=== PATIENT | female | born 1940 | race Caucasian/White ===

== ENCOUNTER 2016-11-13 13:08 | Outpatient (CLI) | payer MEDICARE, BC ==
--- NOTE | 2016-11-14 13:15 | Mammography Report ---
DIGITAL SCREENING MAMMOGRAM: 11/13/2016 CLINICAL INDICATION: A 76-year-old nulliparous patient with family history of breast cancer for scre ening. COMPARISON: 11/2015, 09/2014, 09/2013, 07/2012, 05/2011, 05/2010, 05/2009. TECHNIQUE: Routine CC and MLO projections were obtained of the breasts. FINDINGS: The breasts again demonstrate scattered fibroglandular densities bilaterally. Coarse, typ ically benign calcifications are present. No suspicious masses, clustered microcalcifications, or re gions of architectural distortion are identified. IMPRESSION: BENIGN FINDINGS. RECOMMENDATION: Routine annual screening unless otherwise clinically indicated. BI-RADS category 2, benign findings. STANDARD QUALIFYING STATEMENTS 1. This examination was reviewed with the aid of Computer-Aided Detection (CAD). 2. A negative or benign imaging report should not delay biopsy if clinically suspicious findings are present. Consider surgical consultation if warranted. More than 5% of cancers are not identified by i maging. 3. Dense breasts may obscure an underlying neoplasm. JOB #: [id number] EXT JOB #:[id number]
== END 2016-11-13 13:09 | disposition home or self-care (01) ==
LOC: DI 13:08
PROVIDERS: ATTEND Internal Medicine
DX: Z12.31 Encounter for screening mammogram for malignant neoplasm of breast (principal)
CPT/HCPCS: 77067

== ENCOUNTER 2017-11-11 08:00 | Outpatient (CLI) | payer MEDICARE, BC | END 2017-11-11 08:01 | disposition home or self-care (01) | LOC: LAB.R 08:00 | PROVIDERS: ATTEND Internal Medicine | DX: J02.9 Acute pharyngitis, unspecified (principal) | CPT/HCPCS: 87070; 87430 ==

== ENCOUNTER 2017-11-25 11:21 | Outpatient (CLI) | payer MEDICARE, BC | END 2017-11-25 11:22 | disposition home or self-care (01) | LOC: DI 11:21 | PROVIDERS: ATTEND Internal Medicine | DX: Z12.31 Encounter for screening mammogram for malignant neoplasm of breast (principal) | CPT/HCPCS: 77063; 77067 ==

== ENCOUNTER 2018-06-06 12:09 | Emergency (ER) | payer MEDICARE, BC ==
[2018-06-06] MEDS ORDERED: SODIUM CHLORIDE 0.9% 1,000 ML IV ONE (12:32)
--- NOTE | 2018-06-06 12:33 | ED Physician Documentation ---
PD HPI FEMALE - Stated complaint Stated Complaint: FEMALE - Chief complaint Chief Complaint: General - History obtained from History obtained from: Patient PD PAST MEDICAL HISTORY - Allergies Allergies/Adverse Reactions: Allergies Allergy/AdvReac Type Severity Reaction Status Date / Time acetaminophen [From Vicodin] Allergy Unknown Verified 06/06/18 12:18 digoxin Allergy Unknown Verified 06/06/18 12:22 hydrocodone [From Vicodin] Allergy Unknown Verified 06/06/18 12:18 omeprazole Allergy Unknown Verified 06/06/18 12:22 Penicillins Allergy Unknown Verified 06/06/18 12:18 Sulfa (Sulfonamide Allergy Unknown Verified 06/06/18 12:18 Antibiotics) sulfamethoxazole Allergy Unknown Verified 06/06/18 12:23 [From Septra] trimethoprim [From Septra] Allergy Unknown Verified 06/06/18 12:23 Results - Vitals Vitals: Vital Signs - 24 hr 06/06/18 12:18 Temperature 36.3 C L Heart Rate 67 Respiratory 16 Rate Blood Pressure 178/75 H O2 Saturation 97 Oxygen O2 Source Room air
--- NOTE | 2018-06-06 12:47 | ED Physician Documentation ---
History of Present Illness - Stated complaint Stated Complaint: FEMALE - Chief complaint Chief Complaint: General - History obtained from History obtained from: Patient, Family - Additonal information Additional information: Patient is a 78-year-old female with history of atrial fibrillation with anticoagulation of Coumadin presenting with hematuria associated with right flank pain and right-sided abdominal pain, although no suprapubic pain, nausea, vomiting, dysuria, stool changes, or fever. Patient is traveling home from [place] where she was hospitalized for some time due to pneumonia, CHF, and atrial fibrillation. Patient is scheduled for follow-up with cardiology later this week to discuss ablation. Patient's last INR several days ago was over 6 and she has held her Coumadin for the past 2 days. Patient denies any particular improving or worsening factors. Review of Systems Constitutional: denies: Fever GI: reports: Abdominal Pain. denies: Vomiting : reports: Hematuria. denies: Dysuria Musculoskeletal: reports: Back pain PD PAST MEDICAL HISTORY - Past Medical History Past Medical History: Yes Cardiovascular: Congestive heart failure, Atrial fibrillation - Present Medications Home Medications: Ambulatory Orders Medication Instructions Recorded Confirmed Amiodarone [Pacerone] 200 mg PO DAILY 06/06/18 06/06/18 Cephalexin [Keflex] 500 mg PO TID 10 Days #30 capsule 06/06/18 Estradiol 0.025 mg PO DAILY 06/06/18 06/06/18 Furosemide [Lasix] 20 mg PO DAILY 06/06/18 06/06/18 Lovastatin 20 mg PO DAILY 06/06/18 06/06/18 Metoprolol Succinate 12.5 mg PO BID 06/06/18 06/06/18 Rabeprazole Sodium [Aciphex] 20 mg PO DAILY 06/06/18 06/06/18 Thyroid [[place] Thyroid] 60 mg PO DAILY 06/06/18 06/06/18 Warfarin [Coumadin] 5 mg PO 1400 06/06/18 06/06/18 - Allergies Allergies/Adverse Reactions: Allergies Allergy/AdvReac Type Severity Reaction Status Date / Time acetaminophen [From Vicodin] Allergy Unknown Verified 06/06/18 12:18 digoxin Allergy Unknown Verified 06/06/18 12:22 hydrocodone [From Vicodin] Allergy Unknown Verified 06/06/18 12:18 omeprazole Allergy Unknown Verified 06/06/18 12:22 Penicillins Allergy Unknown Verified 06/06/18 12:18 Sulfa (Sulfonamide Allergy Unknown Verified 06/06/18 12:18 Antibiotics) sulfamethoxazole Allergy Unknown Verified 06/06/18 12:23 [From ] trimethoprim [From ] Allergy Unknown Verified 06/06/18 12:23 PD ED PE NORMAL - General General: Alert and oriented X 3, No acute distress, Well developed/nourished - HEENT HEENT: Atraumatic - Cardiac Cardiac: RRR. No: No murmur (Soft, holosystolic over tricuspid) - Respiratory Respiratory: No respiratory distress, Clear bilaterally - Abdomen Abdomen: Normal bowel sounds, Soft, Non tender, Non distended - Back Back: No: No CVA TTP (Right CVA tenderness) - Derm Derm: Normal color, Warm and dry, No rash - Extremities Extremities: No deformity, No tenderness to palpate - Neuro Neuro: Alert and oriented X 3, No motor deficit, No sensory deficit - Psych Psych: Normal mood, Normal affect Results - Vitals Vitals: Vital Signs - 24 hr 06/06/18 12:18 Temperature 36.3 C L Heart Rate 67 Respiratory 16 Rate Blood Pressure 178/75 H O2 Saturation 97 Oxygen O2 Source Room air - Labs Labs: Laboratory Tests 06/06/18 06/06/18 06/06/18 12:33 12:50 12:50 WBC 6.5 RBC 5.77 H Hgb 16.8 H Hct 49.1 H MCV 85.2 MCH 29.2 MCHC 34.2 RDW 13.7 Plt Count 423 MPV 7.3 L Neut # (Auto) 3.9 Lymph # (Auto) 1.5 Pine # (Auto) 0.9 Eos # (Auto) 0.1 Baso # (Auto) 0.1 Absolute Nucleated RBC 0.00 Nucleated RBC % 0.0 PT 63.8 H INR 5.8 H* APTT 59.5 H Sodium Potassium Chloride Carbon Dioxide Anion Gap BUN Creatinine Estimated GFR (MDRD) Glucose Calcium Total Bilirubin AST ALT Alkaline Phosphatase Total Protein Albumin Globulin Albumin/Globulin Ratio Lipase Urine Color RED/BLOODY Urine Clarity BLOODY Urine pH 7.5 Ur Specific Rudolph <=1.005 Urine Protein Urine Glucose (UA) NEGATIVE Urine Ketones Urine Occult Blood Urine Nitrite Urine Bilirubin NEGATIVE Urine Urobilinogen Ur Leukocyte Esterase Urine RBC TNTC H Urine WBC 0-3 Ur Squamous Epith Cells RARE Squamous Urine Bacteria None Seen Ur Microscopic Review INDICATED Urine Culture Comments NOT INDICATED 06/06/18 12:50 WBC RBC Hgb Hct MCV MCH MCHC RDW Plt Count MPV Neut # (Auto) Lymph # (Auto) Pine # (Auto) Eos # (Auto) Baso # (Auto) Absolute Nucleated RBC Nucleated RBC % PT INR APTT Sodium 134 L Potassium 3.6 Chloride 100 L Carbon Dioxide 26 Anion Gap 8.0 BUN 8 Creatinine 0.7 Estimated GFR (MDRD) 81 L Glucose 109 H Calcium 9.4 Total Bilirubin 1.1 H AST 27 ALT 21 Alkaline Phosphatase 63 Total Protein 7.5 Albumin 4.1 Globulin 3.4 Albumin/Globulin Ratio 1.2 Lipase 26 Urine Color Urine Clarity Urine pH Ur Specific Rudolph Urine Protein Urine Glucose (UA) Urine Ketones Urine Occult Blood Urine Nitrite Urine Bilirubin Urine Urobilinogen Ur Leukocyte Esterase Urine RBC Urine WBC Ur Squamous Epith Cells Urine Bacteria Ur Microscopic Review Urine Culture Comments PD MEDICAL DECISION MAKING - ED course Complexity details: reviewed results, re-evaluated patient, considered differential, d/w patient, d/w family ED course: Most concerning for pyelonephritis and UTI given the patient's complaints and physical exam. Patient unfortunately has had a complicated past several weeks/months with episodes of pneumonia, CHF, and atrial fibrillation. Do not feel that these factors are contributing to her issues today. Do not have high suspicion for new or worsening arrhythmia, IL, unstable angina, CHF exacerbation, pneumonia, or other systemic illness except for renal disease at this time. Patient's hematuria may be related to hemorrhagic cystitis or her anticoagulation and therefore, INR will be obtained in addition to other lab work. Urinalysis also ordered. Patient started on IV fluids, but does not require further medications at this time. Patient is set up for cardiac follow- up later this week. Patient was unsure if she has had a murmur diagnosed in the past. Do not think this is related to today's issues and can be followed appropriately in the next several days by cardiology.Patient's lab work returned relatively unremarkable with no significant evidence of leukocytosis, anemia, acute kidney injury. However, patient's INR was extremely supratherapeutic at 5.8, which is likely contributing to patient's hematuria. Unfortunately, patient's urinalysis was difficult to interpret as many values were not able to be obtained due to the heavy presence of blood. However, at this time, feel that based on clinical exam patient could be experiencing pyelonephritis and UTI and felt most appropriate to treat with antibiotic. Patient did request IV dose of antibiotic prior to discharge and Rocephin was given. Patient does note allergies to sulfa and penicillins. Feel that cross-reactivity with cephalosporins will be minimal and felt comfortable administering this medication here and at home. Also advised to continue to hold Coumadin until further INR check and have close follow-up with both primary care physician and cardiology this week. Also discussed strict return precautions. Patient voiced understanding and are comfortable with discharge plan. Departure - Departure Disposition: , Self Care Clinical Impression: Pyelonephritis Urinary tract infection Qualifiers: Urinary tract infection type: site unspecified Hematuria presence: with hematuria Qualified Code(s): N39.0 - Urinary tract infection, site not specified; R31.9 - Hematuria, unspecified Condition: Good Instructions: ED Kidney Infec Female, ED UTI Cystitis Female Follow-Up: Matilde Wolf MD [Primary Care Provider] - Tomorrow Prescriptions: Cephalexin [Keflex] 500 mg PO TID 10 Days #30 capsule Comments: Please continue all home medication as previously instructed except for Coumadin. 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 Please contact your primary care physician tomorrow for close follow-up, as well as attend follow-up as scheduled with Cristal Yao later this week. Return to ED immediately if experience worsening bleeding, worsening pain, fever, vomiting, or other concerns.
[2018-06-06 12:55] LABS: BILIRUBIN,URINE NEGATIVE (NEGATIVE); GLUCOSE, URINE (UA) NEGATIVE (NEGATIVE); PH,URINE 7.5 PH (5.0-7.5)
[2018-06-06 12:58] LABS: CLARITY,URINE BLOODY (CLEAR)
[2018-06-06 13:07] LABS: BASOPHILS # (AUTO) 0.1 10^3/uL (0.0-0.1); BASOPHILS % (AUTO) 1.6 %; EOSINOPHILS # (AUTO) 0.1 10^3/uL (0.0-0.7); EOSINOPHILS % (AUTO) 1.2 %; HGB - HEMOGLOBIN 16.8 g/dL (12.0-16.0); LYMPHOCYTES # (AUTO) 1.5 10^3/uL (1.5-3.5); LYMPHOCYTES % (AUTO) 22.8 %; MEAN CORPUSCULAR HEMOGLOBIN 29.2 pg (27.0-31.0); MEAN CORPUSCULAR HGB CONC 34.2 g/dL (32.0-36.0); MEAN CORPUSCULAR VOLUME 85.2 fL (81.0-99.0); MEAN PLATELET VOLUME 7.3 fL (7.9-10.8); MONOCYTES # (AUTO) 0.9 10^3/uL (0.0-1.0); MONOCYTES % (AUTO) 14.2 %; NEUTROPHILS # (AUTO) 3.9 10^3/uL (1.5-6.6); NEUTROPHILS % (AUTO) 60.2 %; PLT - PLATELET COUNT 423 10^3/uL (130-450); RED BLOOD COUNT 5.77 10^6/uL (4.20-5.40); RED CELL DISTRIBUTION WIDTH 13.7 % (12.0-15.0); WHITE BLOOD COUNT 6.5 x10^3/uL (4.8-10.8)
[2018-06-06 13:17] LABS: ALBUMIN 4.1 g/dL (3.2-5.5); ALBUMIN/GLOBULIN RATIO 1.2 (1.0-2.2); BILIRUBIN,TOTAL 1.1 mg/dL (0.2-1.0); CALCIUM 9.4 mg/dL (8.5-10.3); CREATININE 0.7 mg/dL (0.4-1.0); TOTAL PROTEIN 7.5 g/dL (6.7-8.2)
[2018-06-06 13:18] LABS: BACTERIA,URINE None Seen /HPF (None Seen); RBC,URINE TNTC /HPF (0-5); SQUAMOUS EPITHELIAL CELL,UR RARE Squamous (<= Few)
[2018-06-06 13:20] LABS: PT - PROTHROMBIN TIME 63.8 secs (9.9-12.6)
[2018-06-06 13:33] LABS: PARTIAL THROMBOPLASTIN TIME 59.5 secs (24.9-33.3)
[2018-06-06 13:34] LABS: INR 5.8 (0.8-1.2)
[2018-06-06] MEDS ORDERED: cefTRIAXone 1 GM in SODIUM CHLORIDE 0.9% MINIBAG 100 ML IV STA (14:11)
[2018-06-06 14:30] VITALS: BP 149/63
== END 2018-06-06 14:49 | disposition home or self-care (01) ==
LOC: ED 12:09
DX: N12 Tubulo-interstitial nephritis, not specified as acute or chronic (principal); N39.0 Urinary tract infection, site not specified; R31.9 Hematuria, unspecified; I48.91 Unspecified atrial fibrillation; Z79.01 Long term (current) use of anticoagulants; Z88.0 Allergy status to penicillin; Z88.2 Allergy status to sulfonamides
CPT/HCPCS: 36415; 80053; 81001; 81003; 83690; 85025; 85610; 85730; 87086; 96361; 96365; 99283; 99284

== ENCOUNTER 2018-06-10 10:48 | Outpatient (CLI) | payer MEDICARE, BC ==
[2018-06-10] MEDS ORDERED: IOVERSOL 320 100 ML VIAL IVP ONE ×2 (12:03→12:45)
--- NOTE | 2018-06-10 15:22 | CT Report ---
Reason: R FLANK PAIN Procedure Date: 06/10/2018 Accession Number: [id number] / [id number] Procedure: CT - IVP CPT Code: FULL RESULT: EXAM: CT ABDOMEN AND PELVIS WITHOUT AND WITH CONTRAST (CT IVP) EXAM DATE: 06/10/2018 12:31 PM. CLINICAL HISTORY: Right flank pain. COMPARISONS: None. TECHNIQUE: Routine helical imaging was performed through the kidneys, ureters and bladder in the precontrast, postcontrast and delayed phase. IV Contrast: 100 cc Optiray 320 contrast. Reconstructions: Coronal and sagittal. In accordance with CT protocol optimization, one or more of the following dose reduction techniques were utilized for this exam: automated exposure control, adjustment of mA and/or KV based on patient size, or use of iterative reconstructive technique. FINDINGS: Lung Bases: Unremarkable. Liver: Normal. No masses. Gallbladder/Bile Ducts: Unremarkable. Spleen: Normal. Pancreas: Normal. Adrenal Glands: Normal. Kidneys/Bladder: Right Kidney/Ureter: No renal or ureteral stones. No hydronephrosis or hydroureter. No masses. 2 cm simple appearing lower pole parapelvic cyst. Left Kidney/Ureter: No renal or ureteral stones. No hydronephrosis or hydroureter. No masses. Bladder: No stones. No wall thickening or mass. Peritoneal Cavity/Bowel: Normal. No free fluid, free air or adenopathy. No masses or acute inflammatory process. Pelvic Organs: Visualized pelvic organs are unremarkable. Vasculature: No aneurysms or other significant abnormality. Bones: No significant abnormality. Other: None. IMPRESSION: Normal CT IVP. No urinary tract masses, stones or obstruction. RADIA
== END 2018-06-10 10:49 | disposition home or self-care (01) ==
LOC: DI 10:48
PROVIDERS: ATTEND Internal Medicine
DX: R10.9 Unspecified abdominal pain (principal)
CPT/HCPCS: 74178; Q9967

== ENCOUNTER 2018-06-11 08:41 | Outpatient (CLI) | payer MEDICARE, BC ==
[2018-06-11 09:09] LABS: CALCIUM 9.6 mg/dL (8.5-10.3)
[2018-06-11 09:32] LABS: INR 1.5 (0.8-1.2); PT - PROTHROMBIN TIME 16.3 secs (9.9-12.6)
== END 2018-06-11 08:42 | disposition home or self-care (01) ==
LOC: LAB 08:41
DX: I48.91 Unspecified atrial fibrillation (principal)
CPT/HCPCS: 36415; 80048; 85610

== ENCOUNTER 2018-11-30 08:24 | Outpatient (CLI) | payer MEDICARE, BC ==
[2018-11-30 08:46] LABS: BASOPHILS % (AUTO) 0.2 %; EOSINOPHILS # (AUTO) 0.2 10^3/uL (0.0-0.7); EOSINOPHILS % (AUTO) 3.6 %; LYMPHOCYTES % (AUTO) 23.9 %; MEAN CORPUSCULAR HEMOGLOBIN 27.2 pg (27.0-31.0); MEAN CORPUSCULAR HGB CONC 32.9 g/dL (32.0-36.0); MEAN CORPUSCULAR VOLUME 82.8 fL (81.0-99.0); MEAN PLATELET VOLUME 8.3 fL (7.9-10.8); MONOCYTES # (AUTO) 0.6 10^3/uL (0.0-1.0); MONOCYTES % (AUTO) 13.5 %; NEUTROPHILS # (AUTO) 2.4 10^3/uL (1.5-6.6); NEUTROPHILS % (AUTO) 58.3 %; PLT - PLATELET COUNT 407 10^3/uL (130-450); RED BLOOD COUNT 4.41 10^6/uL (4.20-5.40); RED CELL DISTRIBUTION WIDTH 12.1 % (12.0-15.0); WHITE BLOOD COUNT 4.2 x10^3/uL (4.8-10.8)
[2018-11-30 09:02] LABS: HB2 TOTAL 12.5 g/dL; HEMOGLOBIN A1C 0.45 g/dL; HEMOGLOBIN A1C % 5.4 % (4.6-6.2)
[2018-11-30 09:15] LABS: BILIRUBIN,URINE NEGATIVE (NEGATIVE); GLUCOSE, URINE (UA) NEGATIVE (NEGATIVE); KETONES,URINE (UA) NEGATIVE (NEGATIVE); LEUKOCYTE ESTERASE, URINE NEGATIVE (NEGATIVE); NITRITE,URINE NEGATIVE (NEGATIVE); OCCULT BLOOD,URINE NEGATIVE (NEGATIVE); PROTEIN,URINE NEGATIVE (NEGATIVE); UROBILINOGEN,URINE 1 (NORMAL) E.U./dL (NORMAL)
[2018-11-30 09:16] LABS: ALBUMIN 3.8 g/dL (3.2-5.5); ALBUMIN/GLOBULIN RATIO 1.2 (1.0-2.2); ALKALINE PHOSPHATASE 62 IU/L (42-121); ALT ALANINE AMINOTRANSFERASE 16 IU/L (10-60); AST ASPARTATE AMINOTRANSFERASE 22 IU/L (10-42); BILIRUBIN,TOTAL 0.6 mg/dL (0.2-1.0); BUN - BLOOD UREA NITROGEN 11 mg/dL (6-20); CALCIUM 9.1 mg/dL (8.5-10.3); CARBON DIOXIDE - CO2 27 mmol/L (21-32); CHLORIDE 98 mmol/L (101-111); CHOL/HDL RATIO 2.1 (<4.4); CHOLESTEROL 180 mg/dL; CK- CREATINE KINASE 31 IU/L (22-269); CREATININE 0.7 mg/dL (0.4-1.0); GFR - MDRD 81 (>89); GLUCOSE 106 mg/dL (70-100); HDL CHOLESTEROL 84 mg/dL; LDL CHOLESTEROL,CALCULATED 87 mg/dL; SODIUM 132 mmol/L (135-145); VLDL CHOLESTEROL 9 mg/dL
[2018-11-30 09:17] LABS: CLARITY,URINE CLEAR (CLEAR)
[2018-11-30 09:41] LABS: THYROID STIMULATING HORMONE 5.49 uIU/mL (0.34-5.60)
[2018-11-30 09:43] LABS: FREE T4 (FREE THYROXINE) 0.79 ng/dL (0.58-1.64)
== END 2018-11-30 08:25 | disposition home or self-care (01) ==
LOC: LAB 08:24
PROVIDERS: ATTEND Internal Medicine
DX: Z79.899 Other long term (current) drug therapy (principal); Z13.6 Encounter for screening for cardiovascular disorders; R53.83 Other fatigue; R51 Headache; J30.2 Other seasonal allergic rhinitis; I48.91 Unspecified atrial fibrillation; J44.9 Chronic obstructive pulmonary disease, unspecified; K21.9 Gastro-esophageal reflux disease without esophagitis; K27.9 Peptic ulcer, site unspecified, unspecified as acute or chronic, without hemorrhage or perforation; K58.9 Irritable bowel syndrome, unspecified; R31.9 Hematuria, unspecified; M19.90 Unspecified osteoarthritis, unspecified site; E03.9 Hypothyroidism, unspecified; R73.01 Impaired fasting glucose
CPT/HCPCS: 36415; 80053; 80061; 81001; 81003; 82550; 83036; 83721; 84439; 84443; 84481; 85025; 87086

== ENCOUNTER 2018-12-17 11:32 | Outpatient (CLI) | payer MEDICARE, BC ==
--- NOTE | 2018-12-20 09:03 | Mammography Report ---
Reason: SCREENING MAMMO Procedure Date: 12/17/2018 Accession Number: [id number] / [id number] Procedure: [facility] - Screening Mammo w/[facility]o CPT Code: FULL RESULT: EXAM: Screening Mammo w/[facility]o DATE: 12/17/2018 11:56 AM CLINICAL HISTORY: Screening encounter. History of nulliparity. Family history of breast cancer in the mother at the age of 50. TECHNIQUE: (B) - Bilateral CC and MLO views were obtained. COMPARISON: 11/25/2017 through 05/29/2009. PARENCHYMAL PATTERN: (A) - The breast(s) demonstrate(s) scattered fibroglandular densities. FINDINGS: There are coarse typically benign calcifications. There are no suspicious masses, calcifications, or areas of distortion. IMPRESSION: Benign findings. BI-RADS category 2. RECOMMENDATION: (ANNUAL) - Recommend routine annual screening mammography. BI-RADS CATEGORY: (2) - Benign Findings. STANDARD QUALIFYING STATEMENTS: 1. This examination was not reviewed with the aid of Computer-Aided Detection (CAD). 2. A negative or benign imaging report should not preclude biopsy if clinically suspicious findings are present. 3. Dense breasts may obscure an underlying neoplasm. 4. This examination was reviewed with the aid of 3D breast imaging (tomosynthesis).
== END 2018-12-17 11:33 | disposition home or self-care (01) ==
LOC: DI 11:32
PROVIDERS: ATTEND Internal Medicine
DX: Z12.31 Encounter for screening mammogram for malignant neoplasm of breast (principal); Z80.3 Family history of malignant neoplasm of breast
CPT/HCPCS: 77063; 77067

== ENCOUNTER 2019-05-17 12:06 | Outpatient (CLI) | payer MEDICARE, BC ==
[2019-05-17 12:21] LABS: BASOPHILS % (AUTO) 0.2 %; EOSINOPHILS # (AUTO) 0.1 10^3/uL (0.0-0.7); EOSINOPHILS % (AUTO) 2.8 %; HGB - HEMOGLOBIN 10.1 g/dL (12.0-16.0); LYMPHOCYTES # (AUTO) 1.2 10^3/uL (1.5-3.5); LYMPHOCYTES % (AUTO) 28.3 %; MEAN CORPUSCULAR HEMOGLOBIN 22.6 pg (27.0-31.0); MEAN CORPUSCULAR HGB CONC 30.1 g/dL (32.0-36.0); MEAN CORPUSCULAR VOLUME 75.2 fL (81.0-99.0); MEAN PLATELET VOLUME 8.6 fL (7.9-10.8); MONOCYTES # (AUTO) 0.9 10^3/uL (0.0-1.0); MONOCYTES % (AUTO) 19.5 %; NEUTROPHILS # (AUTO) 2.1 10^3/uL (1.5-6.6); PLT - PLATELET COUNT 418 10^3/uL (130-450); RED BLOOD COUNT 4.47 10^6/uL (4.20-5.40); RED CELL DISTRIBUTION WIDTH 15.8 % (12.0-15.0); WHITE BLOOD COUNT 4.4 x10^3/uL (4.8-10.8)
--- NOTE | 2019-05-18 14:25 | XRAY Report ---
Reason: DYSPNEA Procedure Date: 05/17/2019 Accession Number: [id number] / [id number] Procedure: XR - Chest 2 View X-Ray CPT Code: 29129 Final Report FULL RESULT: EXAM: CHEST RADIOGRAPHY EXAM DATE: 05/17/2019 01:00 PM. CLINICAL HISTORY: DYSPNEA. COMPARISON: None. TECHNIQUE: 2 views. FINDINGS: Lungs/Pleura: No focal opacities evident. No pleural effusion. No pneumothorax. Normal volumes. Mediastinum: Heart and mediastinal contours are unremarkable. Other: None. IMPRESSION: Normal 2-view chest radiography. RADIA
== END 2019-05-17 12:07 | disposition home or self-care (01) ==
LOC: LAB 12:06 → DI 12:07
PROVIDERS: ATTEND Internal Medicine
DX: R06.00 Dyspnea, unspecified (principal); D64.9 Anemia, unspecified
CPT/HCPCS: 36415; 71046; 85025

== ENCOUNTER 2019-07-30 09:19 | Outpatient (CLI) | payer MEDICARE, BC ==
[2019-07-30] MEDS ORDERED: ALBUTEROL 1 PUFF INH SCH (09:26)
== END 2019-07-30 09:20 | disposition home or self-care (01) ==
LOC: RT 09:19
PROVIDERS: ATTEND Internal Medicine
DX: R06.00 Dyspnea, unspecified (principal)
CPT/HCPCS: 94060

== ENCOUNTER 2020-08-22 10:13 | Outpatient (CLI) | payer MEDICARE, BC ==
--- NOTE | 2020-08-22 10:35 | XRAY Report ---
PROCEDURE: Chest 2 View X-Ray INDICATIONS: COUGH,DYSPNEA TECHNIQUE: 2 view(s) of the chest. COMPARISON: None. FINDINGS: Surgical changes and devices: None. Lungs and pleura: No pleural effusions or pneumothorax. Lungs are clear. Mediastinum: Mediastinal contours are normal. Heart size is normal. Bones and chest wall: No suspicious bony abnormalities. Soft tissues appear unremarkable. IMPRESSION: Normal for age, source of current symptoms is not seen. Reviewed by: Kelvin Linder MD on 08/22/2020 10:33 AM PDT Approved by: Kelvin Linder MD on 08/22/2020 10:33 AM PDT Station ID: [id number]
== END 2020-08-22 10:14 | disposition home or self-care (01) ==
LOC: DI 10:13
PROVIDERS: ATTEND Internal Medicine
DX: R05 Cough (principal); R06.00 Dyspnea, unspecified

== ENCOUNTER 2021-08-23 17:01 | Outpatient (CLI) | payer MEDICARE, BC ==
--- NOTE | 2021-08-23 20:20 | XRAY Report ---
PROCEDURE: Calcaneus LT INDICATIONS: L HEEL PAIN TECHNIQUE: Two views of the calcaneus were acquired. COMPARISON: None FINDINGS: Bones: No fractures or dislocations. No suspicious bony lesions. Large dorsal and small plantar ca lcaneal bone spurs. Mild midfoot osteoarthritis. Soft tissues: No suspicious calcifications. Achilles tendon appears normal. IMPRESSION: Calcaneal bone spurs. Reviewed by: Barbara Gomez MD, PhD on 08/23/2021 8:19 PM PDT Approved by: Barbara Gomez MD, PhD on 08/23/2021 8:19 PM PDT Station ID: [id number]
== END 2021-08-23 17:02 | disposition home or self-care (01) ==
LOC: DI 17:01
PROVIDERS: ATTEND Internal Medicine
DX: M77.32 Calcaneal spur, left foot (principal)

== ENCOUNTER 2022-01-13 08:00 | Outpatient (CLI) | payer MEDICARE, BC ==
[2022-01-13 18:49] LABS: BASOPHILS % (AUTO) 0.2 %; EOSINOPHILS # (AUTO) 0.1 10^3/uL (0.0-0.7); EOSINOPHILS % (AUTO) 1.9 %; HCT - HEMATOCRIT 41.3 % (37.0-47.0); HGB - HEMOGLOBIN 14.5 g/dL (12.0-16.0); LYMPHOCYTES % (AUTO) 22.7 %; MEAN CORPUSCULAR HEMOGLOBIN 31.2 pg (27.0-31.0); MEAN CORPUSCULAR HGB CONC 35.1 g/dL (32.0-36.0); MEAN CORPUSCULAR VOLUME 88.8 fL (81.0-99.0); MEAN PLATELET VOLUME 9.7 fL (7.9-10.8); MONOCYTES # (AUTO) 0.9 10^3/uL (0.0-1.0); MONOCYTES % (AUTO) 20.6 %; NEUTROPHILS # (AUTO) 2.3 10^3/uL (1.5-6.6); NEUTROPHILS % (AUTO) 54.4 %; PLT - PLATELET COUNT 347 10^3/uL (130-450); RED BLOOD COUNT 4.65 10^6/uL (4.20-5.40); RED CELL DISTRIBUTION WIDTH 12.4 % (12.0-15.0); WHITE BLOOD COUNT 4.2 x10^3/uL (4.8-10.8)
[2022-01-13 19:46] LABS: ALBUMIN 4.3 g/dL (3.2-5.5); ALBUMIN/GLOBULIN RATIO 1.5 (1.0-2.2); ALKALINE PHOSPHATASE 58 IU/L (42-121); ALT ALANINE AMINOTRANSFERASE 14 IU/L (10-60); AST ASPARTATE AMINOTRANSFERASE 21 IU/L (10-42); BILIRUBIN,TOTAL 0.8 mg/dL (0.2-1.0); BUN - BLOOD UREA NITROGEN 10 mg/dL (6-20); CALCIUM 9.4 mg/dL (8.5-10.3); CARBON DIOXIDE - CO2 24 mmol/L (21-32); CHLORIDE 98 mmol/L (101-111); CHOL/HDL RATIO 2.7 (<4.4); CHOLESTEROL 181 mg/dL; CREATININE 0.6 mg/dL (0.4-1.0); GFR - MDRD 96 (>89); GLUCOSE 92 mg/dL (70-100); HDL CHOLESTEROL 68 mg/dL; LDL CHOLESTEROL,CALCULATED 92 mg/dL; LDL/HDL RATIO 1.4 (<4.4); POTASSIUM 4.5 mmol/L (3.5-5.0); SODIUM 131 mmol/L (135-145); TOTAL PROTEIN 7.2 g/dL (6.7-8.2); TRIGLYCERIDES 103 mg/dL; VLDL CHOLESTEROL 21 mg/dL
[2022-01-13 20:16] LABS: ESTIMATED AVERAGE GLUCOSE 103 mg/dL (70-100); HEMOGLOBIN A1c% 5.2 % (4.27-6.07)
== END 2022-01-13 23:59 | disposition home or self-care (01) ==
LOC: LAB.R 08:00
PROVIDERS: ATTEND Internal Medicine
DX: I48.91 Unspecified atrial fibrillation (principal); J44.9 Chronic obstructive pulmonary disease, unspecified; R06.00 Dyspnea, unspecified; K21.9 Gastro-esophageal reflux disease without esophagitis; E03.9 Hypothyroidism, unspecified; R73.01 Impaired fasting glucose; Z79.899 Other long term (current) drug therapy
CPT/HCPCS: 80053; 80061; 83036; 83721; 84443; 85025

== ENCOUNTER 2023-04-13 13:02 | Outpatient (CLI) | payer MEDICARE, OTHER ==
--- NOTE | 2023-04-14 16:22 | Mammography Report ---
BILATERAL DIGITAL SCREENING MAMMOGRAM 3D/2D: 04/13/2023 CLINICAL: Routine screening. Comparison is made to exams dated: 12/17/2018 mammogram, 11/25/2017 mammogram, 11/13/2016 mammogram, 11/15/2015 mammogram, 09/28/2014 mammogram, and 09/22/2013 mammogram - [facility]. There are scattered areas of fibroglandular density in both breasts (category b / 25%-50% glandular t issue). There are benign calcifications in both breasts. No significant masses, calcifications, or other findings are seen in either breast. There has been no significant interval change. IMPRESSION: BENIGN There is no mammographic evidence of malignancy. A 1 year screening mammogram is recommended. Based on the Tyrer Cuzick model (a risk assessment model) the patient's lifetime risk is 1.6% and her 10 year risk is 0.0%. According to the ACR, ACS, and NCCN guidelines, an annual breast MRI exam caitlyn g with mammogram is recommended if the patient's lifetime risk is 20% or greater. This exam was interpreted at Station ID: [id number]. NOTE: For mammograms, a report in lay terms will be sent to the patient. Approximately 15% of breast malignancies will not be visualized mammographically. In the management of a palpable breast mass, a negative mammogram must not discourage biopsy of a clinically suspicious lesion. Electronically Signed By: Autumn zavala/brant:04/13/2023 13:56:37 letter sent: No_Letter ACR BI-RADS Category 2: Benign Finding(s) 3342F PARENCHYMAL PATTERN: (A) - The breast(s) demonstrate(s) scattered fibroglandular densities. BI-RADS CATEGORY: (2) - 2 Mammogram [id number] 1 year screening LATERALITY: (B)
== END 2023-04-13 13:03 | disposition home or self-care (01) ==
LOC: DI 13:02
PROVIDERS: ATTEND Internal Medicine
DX: Z12.31 Encounter for screening mammogram for malignant neoplasm of breast (principal); R92.323 Mammographic fibroglandular density, bilateral breasts; R92.1 Mammographic calcification found on diagnostic imaging of breast

== ENCOUNTER 2023-10-05 06:23 | Outpatient (CLI) | payer MEDICARE | END 2023-10-05 23:59 | disposition critical access hospital (66) | LOC: EMS 06:23 | PROVIDERS: ATTEND Emergency Medicine | DX: R06.02 Shortness of breath (principal); R05.9 Cough, unspecified; R06.2 Wheezing; F41.9 Anxiety disorder, unspecified ==

== ENCOUNTER 2023-10-05 06:38 | Inpatient (IN) | payer MEDICARE, OTHER ==
--- NOTE | 2023-10-05 06:59 | ED Physician Documentation ---
PD HPI DYSPNEA - Stated complaint Stated Complaint: SOA - Chief complaint Chief Complaint: Resp - History obtained from History obtained from: Patient, Family, EMS - History of Present Illness Timing - onset: Enter time (0200), Today Timing - onset during: Sleep Timing - duration: Hours Timing - details: Abrupt onset, Still present Inciting event(s): Other (awoke with sounds of wheezing and difficulty breathing had to sit up to catch her breath was not able to get back to sleep with worseni ng wheezing and dyspena) Improved by: O2, BiPAP / CPAP, Inhaler/neb Worsened by: Exertion, Laying flat, Coughing Associated symptoms: Cough (after symtoms started.) Similar symptoms before: Has not had sx before Recently seen: Not recently seen - Additional information Additional information: 83-year-old Bob has a history of atrial fibrillation she has a watchman in place. She has a history of some thyroid disease and reflux. She was asleep this morning when she awoke at 2 AM with audible wheezing. She felt she had to sit up in her bed to catch her breath. She took some NyQuil did not get relief with this she has finally called the ambulance with persistent severe wheezing. And route to the hospital she was administered a DuoNeb treatment as well as 125 mg of Solu-Medrol. They found O2 saturation of 87% on room air prior to administration of oxygen. They were able to get oxygen up to 98%. Review of Systems Constitutional: denies: Fever, Chills, Myalgias Eyes: denies: Decreased vision Ears: denies: Ear pain Nose: denies: Rhinorrhea / runny nose, Congestion Throat: denies: Sore throat Cardiac: reports: Chest pain / pressure. denies: Palpitations, Pedal edema, Calf pain Respiratory: reports: Dyspnea, Cough, Wheezing GI: denies: Abdominal Pain, Nausea, Vomiting, Constipation, Diarrhea : denies: Dysuria, Frequency Skin: denies: Rash Musculoskeletal: denies: Neck pain, Back pain, Extremity pain Neurologic: denies: Generalized weakness, Focal weakness, Numbness PD PAST MEDICAL HISTORY - Past Medical History Past Medical History: Yes Cardiovascular: Congestive heart failure, Atrial fibrillation - Past Surgical History Past Surgical History: Yes - Present Medications Home Medications: Ambulatory Orders Medication Instructions Recorded Confirmed Furosemide [Lasix] 20 mg PO DAILY 06/06/18 10/05/23 Lovastatin 20 mg PO QPM 06/06/18 10/05/23 Metoprolol Succinate 25 mg PO BID 06/06/18 10/05/23 Rabeprazole Sodium [Aciphex] 20 mg PO QPM 06/06/18 10/05/23 Thyroid [[place] Thyroid] 60 mg PO DAILY 06/06/18 10/05/23 estradioL [Estradiol] 0.25 mg PO DAILY 06/06/18 10/05/23 ALPRAZolam [Alprazolam] 0.5 mg PO DAILY PRN 10/05/23 10/05/23 Aspirin [Vinicio] 325 mg PO DAILY 10/05/23 10/05/23 Ibuprofen 400 mg PO BID PRN 10/05/23 10/05/23 Multivitamin,Therapeutic 1 each PO QPM 10/05/23 10/05/23 [Thera-Tabs] Non Formulary 1 each PO DAILY 10/05/23 10/05/23 Polyethylene Glycol 400 [Dry Eye 1 drops EACHEYE QID PRN 10/05/23 10/05/23 Relief] Potassium Chloride 8 meq PO QPM 10/05/23 10/05/23 amLODIPine [Norvasc] 5 mg PO QPM 10/05/23 10/05/23 levoFLOXacin [Levaquin] 500 mg PO QD 2 Days #4 tablet 10/07/23 - Allergies Allergies/Adverse Reactions: Allergies Allergy/AdvReac Type Severity Reaction Status Date / Time acetaminophen [From Vicodin] Allergy Unknown Verified 10/05/23 06:48 digoxin Allergy Unknown Verified 10/05/23 06:48 hydrocodone [From Vicodin] Allergy Unknown Verified 10/05/23 06:48 omeprazole Allergy Unknown Verified 10/05/23 06:48 Penicillins Allergy Unknown Verified 10/05/23 06:48 Sulfa (Sulfonamide Allergy Unknown Verified 10/05/23 06:48 Antibiotics) sulfamethoxazole Allergy Unknown Verified 10/05/23 06:48 [From Septra] trimethoprim [From Novra] Allergy Unknown Verified 10/05/23 06:48 - Social History Does the pt smoke?: No Smoking Status: Never smoker PD ED PE NORMAL - Vitals Vital signs reviewed: Yes (Tachypneic and hypertensive) - General General: Alert and oriented X 3, Well developed/nourished, Other ( struggling for a breath and is tachypneic) - HEENT HEENT: Atraumatic, PERRL, EOMI - Neck Neck: Supple, no meningeal sign, No bony TTP - Cardiac Cardiac: RRR, No murmur - Respiratory Respiratory: Other (tachypneic with diminished breath sounds bilat) - Abdomen Abdomen: Soft, Non tender - Back Back: No CVA TTP, No spinal TTP - Derm Derm: Normal color, Warm and dry, No rash - Extremities Extremities: No deformity, No edema - Neuro Neuro: Alert and oriented X 3, 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, No motor deficit, No sensory deficit, Normal speech Eye Opening: Spontaneous Motor: Obeys Commands Verbal: Oriented GCS Score: 15 - Psych Psych: Normal mood, Normal affect Results - Vitals Vitals: Oxygen O2 Source BIPAP - Labs Labs: Laboratory Tests 10/05/23 10/05/23 10/05/23 06:40 06:42 06:42 WBC 8.8 RBC 4.40 Hgb 13.9 Hct 39.2 MCV 89.1 MCH 31.6 H MCHC 35.5 RDW 12.0 Plt Count 307 MPV 9.9 Neut # (Auto) 4.8 Lymph # (Auto) 1.6 Delta # (Auto) 2.4 H Eos # (Auto) 0.0 Baso # (Auto) 0.0 Absolute Nucleated RBC 0.00 Nucleated RBC % 0.0 Manual Slide Review Indicated RBC Morph Micro Appear 1+ ANISOCYTOSIS PT INR Bld Gas Analysis Time Sample Site ABG pH ABG pCO2 ABG pO2 ABG HCO3 ABG Total CO2 ABG O2 Saturation ABG Base Excess Jonah Test O2 Delivery Device Vent Mode FiO2 EPAP IPAP Sodium 126 L Potassium 3.9 Chloride 93 L Carbon Dioxide 25 Anion Gap 8.0 BUN 9 Creatinine 0.6 Estimated GFR (MDRD) 96 Glucose 168 H Calcium 9.5 Magnesium Total Bilirubin 0.9 AST 21 ALT 13 Alkaline Phosphatase 63 Troponin I High Sens 3.6 B-Natriuretic Peptide Total Protein 7.0 Albumin 4.3 Globulin 2.7 Albumin/Globulin Ratio 1.6 Lipase 11 Nasal Adenovirus (PCR) NOT DETECTED Nasal B. parapertussis DNA (PCR) NOT DETECTED Nasal Coronavir 229E PCR NOT DETECTED Nasal Coronavir HKU1 PCR NOT DETECTED Nasal Coronavir NL63 PCR NOT DETECTED Nasal Coronavir OC43 PCR NOT DETECTED Nasal Enterovir/Rhinovir PCR NOT DETECTED Nasal Influenza B PCR NOT DETECTED Nasal Influenza A PCR NOT DETECTED Nasal Parainfluen 1 PCR NOT DETECTED Nasal Parainfluen 2 PCR NOT DETECTED Nasal Parainfluen 3 PCR NOT DETECTED Nasal Parainfluen 4 PCR NOT DETECTED Nasal RSV (PCR) NOT DETECTED Nasal B.pertussis DNA PCR NOT DETECTED Nasal C.pneumoniae (PCR) NOT DETECTED Robetr Human Metapneumo PCR NOT DETECTED Nasal M.pneumoniae (PCR) NOT DETECTED Nasal SARS-CoV-2 (PCR) NOT DETECTED 10/05/23 10/05/23 10/05/23 06:42 06:42 07:37 WBC RBC Hgb Hct MCV MCH MCHC RDW Plt Count MPV Neut # (Auto) Lymph # (Auto) Delta # (Auto) Eos # (Auto) Baso # (Auto) Absolute Nucleated RBC Nucleated RBC % Manual Slide Review RBC Morph Micro Appear PT INR Bld Gas Analysis Time 07:44 Sample Site LEFT RADIAL ABG pH 7.42 ABG pCO2 35 ABG pO2 84 ABG HCO3 22.4 ABG Total CO2 23.5 ABG O2 Saturation 96 ABG Base Excess -1.4 Jonah Test POSITIVE O2 Delivery Device BiPAP Vent Mode SYNCHRONOUS/TIMES FiO2 35.00 EPAP 5 IPAP 12 Sodium Potassium Chloride Carbon Dioxide Anion Gap BUN Creatinine Estimated GFR (MDRD) Glucose Calcium Magnesium 1.6 L Total Bilirubin AST ALT Alkaline Phosphatase Troponin I High Sens B-Natriuretic Peptide 276 H Total Protein Albumin Globulin Albumin/Globulin Ratio Lipase Nasal Adenovirus (PCR) Nasal B. parapertussis DNA (PCR) Nasal Coronavir 229E PCR Nasal Coronavir HKU1 PCR Nasal Coronavir NL63 PCR Nasal Coronavir OC43 PCR Nasal Enterovir/Rhinovir PCR Nasal Influenza B PCR Nasal Influenza A PCR Nasal Parainfluen 1 PCR Nasal Parainfluen 2 PCR Nasal Parainfluen 3 PCR Nasal Parainfluen 4 PCR Nasal RSV (PCR) Nasal B.pertussis DNA PCR Nasal C.pneumoniae (PCR) Robert Human Metapneumo PCR Nasal M.pneumoniae (PCR) Nasal SARS-CoV-2 (PCR) 10/05/23 08:10 WBC RBC Hgb Hct MCV MCH MCHC RDW Plt Count MPV Neut # (Auto) Lymph # (Auto) Delta # (Auto) Eos # (Auto) Baso # (Auto) Absolute Nucleated RBC Nucleated RBC % Manual Slide Review RBC Morph Micro Appear PT 11.9 INR 1.1 Bld Gas Analysis Time Sample Site ABG pH ABG pCO2 ABG pO2 ABG HCO3 ABG Total CO2 ABG O2 Saturation ABG Base Excess Jonah Test O2 Delivery Device Vent Mode FiO2 EPAP IPAP Sodium Potassium Chloride Carbon Dioxide Anion Gap BUN Creatinine Estimated GFR (MDRD) Glucose Calcium Magnesium Total Bilirubin AST ALT Alkaline Phosphatase Troponin I High Sens B-Natriuretic Peptide Total Protein Albumin Globulin Albumin/Globulin Ratio Lipase Nasal Adenovirus (PCR) Nasal B. parapertussis DNA (PCR) Nasal Coronavir 229E PCR Nasal Coronavir HKU1 PCR Nasal Coronavir NL63 PCR Nasal Coronavir OC43 PCR Nasal Enterovir/Rhinovir PCR Nasal Influenza B PCR Nasal Influenza A PCR Nasal Parainfluen 1 PCR Nasal Parainfluen 2 PCR Nasal Parainfluen 3 PCR Nasal Parainfluen 4 PCR Nasal RSV (PCR) Nasal B.pertussis DNA PCR Nasal C.pneumoniae (PCR) Robert Human Metapneumo PCR Nasal M.pneumoniae (PCR) Nasal SARS-CoV-2 (PCR) Procedures - IVC sono (time) 0650 Bedside IVC sono: IVC measures (cm) (2.43), IVC collapsed c insp (cm) (1.68), Collapsibility index (0.3), Euvolemia (by numbers there is adequate collapse the vessle is generous and failure is a possibilty.) PD Medical Decision Making - ED course Complexity details: reviewed results, re-evaluated patient, considered differential, d/w patient, d/w family ED course: Nicole Rojas presents to the emergency department with acute shortness of breath with wheezing that began at about 2:00 in the morning. She does not have a history of COPD and has not had to use an inhaler ever before. She was treated in the field with a DuoNeb and Solu-Medrol. Her history is most consistent with the possibility of aspiration and her chest x-ray shows significant infiltrate in the right base. At shift change her care is turned over to Dr. Joyner. Departure - Departure Disposition: 66 [facility] DC/Xfer Clinical Impression: Hypoxia, Hyponatremia Pneumonia Qualifiers: Pneumonia type: due to unspecified organism Laterality: right Lung location: lower lobe of lung Qualified Code(s): J18.9 - Pneumonia, unspecified organism Dyspnea Qualifiers: Dyspnea type: acute respiratory distress Qualified Code(s): R06.03 - Acute respiratory distress Condition: Stable Discharge Date/Time: 10/05/23 11:42
[2023-10-05 07:14] LABS: EOSINOPHILS % (AUTO) 0.3 %; HCT - HEMATOCRIT 39.2 % (37.0-47.0); HGB - HEMOGLOBIN 13.9 g/dL (12.0-16.0); LYMPHOCYTES # (AUTO) 1.6 10^3/uL (1.5-3.5); LYMPHOCYTES % (AUTO) 17.9 %; MEAN CORPUSCULAR HEMOGLOBIN 31.6 pg (27.0-31.0); MEAN CORPUSCULAR HGB CONC 35.5 g/dL (32.0-36.0); MEAN CORPUSCULAR VOLUME 89.1 fL (81.0-99.0); MEAN PLATELET VOLUME 9.9 fL (7.9-10.8); MONOCYTES # (AUTO) 2.4 10^3/uL (0.0-1.0); MONOCYTES % (AUTO) 27.4 %; NEUTROPHILS # (AUTO) 4.8 10^3/uL (1.5-6.6); NEUTROPHILS % (AUTO) 53.9 %; PLT - PLATELET COUNT 307 10^3/uL (130-450); WHITE BLOOD COUNT 8.8 x10^3/uL (4.8-10.8)
[2023-10-05] MEDS: ALBUTEROL NEB 2.5 MG/3 ML INH STA (07:15)
[2023-10-05 07:16] LABS: SLIDE REVIEW? Indicated
[2023-10-05 07:17] LABS: ALBUMIN 4.3 g/dL (3.2-5.5); ALBUMIN/GLOBULIN RATIO 1.6 (1.0-2.2); BILIRUBIN,TOTAL 0.9 mg/dL (0.2-1.0); CALCIUM 9.5 mg/dL (8.5-10.3); CREATININE 0.6 mg/dL (0.6-1.3); POTASSIUM 3.9 mmol/L (3.5-4.5)
[2023-10-05 07:20] LABS: TROPONIN I HIGH SENSITIVITY 3.6 ng/L (2.3-14.8)
[2023-10-05 07:44] LABS: ABG HCO3 22.4 mmol/L (22.0-26.0); ABG PCO2 35 mmHg (34-45); ABG PH 7.42 (7.35-7.45); ABG PO2 84 mmHg (80-100)
[2023-10-05 07:45] LABS: ABG BASE EXCESS -1.4 mmol/L (-2.0-3.0); ABG OXYGEN SATURATION 96 % (94-98); ABG TCO2 23.5 MMOL/L (21.0-29.0); ALLEN TEST POSITIVE
[2023-10-05 07:46] LABS: ABG MODE OF VENTILATION SYNCHRONOUS/TIMES
[2023-10-05 07:48] LABS: B. PARAPERTUSSIS- RESP PCR PAN NOT DETECTED; B. PERTUSSIS- RESP PCR PANEL NOT DETECTED; C. PNEUMONIAE- RESP PCR PANEL NOT DETECTED; CORONAVIRUS 229E-RESP PCR NOT DETECTED; CORONAVIRUS HKU1-RESP PCR NOT DETECTED; CORONAVIRUS NL63-RESP PCR NOT DETECTED; CORONAVIRUS OC43-RESP PCR NOT DETECTED; HUMAN METAPNEUMOVIRUS NOT DETECTED; INFLUENZA A- RESP PCR PANEL NOT DETECTED; INFLUENZA B - RESP PCR PANEL NOT DETECTED; M. PNEUMONIAE- RESP PCR PANEL NOT DETECTED; PARAINFLUENZA VIRUS 1 NOT DETECTED; PARAINFLUENZA VIRUS 2 NOT DETECTED; PARAINFLUENZA VIRUS 3 NOT DETECTED; PARAINFLUENZA VIRUS 4 NOT DETECTED; RHINOVIRUS/ENTEROVIRUS NOT DETECTED; RSV- RESP PCR PANEL NOT DETECTED; SARS-CoV-2 -RESP PCR PANEL NOT DETECTED
[2023-10-05 07:52] LABS: RBC MORPHOLOGY (MULTIPLE) 1+ ANISOCYTOSIS (NORMAL)
--- NOTE | 2023-10-05 08:06 | XRAY Report ---
PROCEDURE: Chest 1V INDICATIONS: trouble breathing TECHNIQUE: One view of the chest was acquired. COMPARISON: 08/22/2020 and 05/17/2019. FINDINGS: Surgical changes and devices: None. Lungs and pleura: There is mild pulmonary vascular congestion. Ill-defined airspace opacity in bilat eral infrahilar region is seen concerning for small infiltrates versus atelectasis. No significant pl eural effusion. No gross pneumothorax. Mediastinum: Mediastinal contours appear normal. Heart size is enlarged. Bones and chest wall: No suspicious bony lesions. Overlying soft tissues appear unremarkable. IMPRESSION: Mild pulmonary vascular congestion and suggestion of small bibasilar infiltrate versus atelectasis. N o pneumothorax. No discrepancies from preliminary readings. Reviewed by: Nasir Hammonds MD on 10/05/2023 8:04 AM PDT Approved by: Nasir Hammonds MD on 10/05/2023 8:04 AM PDT Station ID: [id number]
[2023-10-05] MEDS: cefTRIAXone 1 GM VIAL IVP STA (08:11)
[2023-10-05 08:22] LABS: INR 1.1 (0.8-1.2); PT - PROTHROMBIN TIME 11.9 secs (9.9-12.6)
[2023-10-05] MEDS: AZITHROMYCIN INJ 500 MG in SODIUM CHLORIDE 0.9% 250 ML IV STA (08:24)
[2023-10-05] MEDS ORDERED: ONDANSETRON 4 MG/2 ML VIAL IVP PRN (10:17)
[2023-10-05] MEDS ORDERED: ACETAMINOPHEN 325 MG TABLET PO PRN (10:17)
[2023-10-05] MEDS ORDERED: SODIUM CHLORIDE FLUSH 0.9% 10 ML SYRINGE IVP PRN (10:17)
[2023-10-05] MEDS ORDERED: ONDANSETRON ODT 4 MG TABLET TL PRN (10:17)
[2023-10-05] MEDS ORDERED: oxyCODONE 5 MG TABLET PO PRN (10:29)
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
--- NOTE | 2023-10-05 11:52 | PHARMACY PROGRESS NOTE ---
- Best Possible Medication History Admit Date and Time: 10/05/23 1017 Processed by: Pharmacy Medications reviewed in ED?: Yes Medication History completed: Yes Patient Interview: Completed Secondary Source(s): Written medication list, Insurance records As the person ultimately responsible for medication therapy, providers are able to order a medication from an existing home medication list in [facility] via the "Reconcile Routine" prior to Confirmation of that medication by sales support representative. Such practice is discouraged except when the physician, in their clinical judgment, deems that a medical need exists for a medication without regard to previous use.
[2023-10-05] MEDS: SODIUM CHLORIDE 0.9% 1,000 ML IV SCH (12:40)
[2023-10-05] MEDS: METOPROLOL SUCCINATE 25 MG TABLET PO SCH (13:27)
[2023-10-05] MEDS: THYROID 60 MG TABLET PO SCH (13:27)
[2023-10-05] MEDS: FUROSEMIDE 20 MG TABLET PO SCH (13:27)
[2023-10-05] MEDS ORDERED: CARISOPRODOL 350 MG PO SCH (14:00)
[2023-10-05] MEDS: SODIUM CHLORIDE FLUSH 0.9% 10 ML SYRINGE IVP SCH (15:46)
[2023-10-05] MEDS: IBUPROFEN 400 MG TABLET PO PRN (17:38)
[2023-10-05] MEDS: POTASSIUM CHLORIDE 8 MEQ PO SCH (21:29)
[2023-10-05] MEDS: PRAVASTATIN 10 MG TABLET PO SCH (21:29)
[2023-10-06 05:45] LABS: BASOPHILS % (AUTO) 0.1 %; HCT - HEMATOCRIT 33.6 % (37.0-47.0); HGB - HEMOGLOBIN 12.1 g/dL (12.0-16.0); LYMPHOCYTES # (AUTO) 0.5 10^3/uL (1.5-3.5); LYMPHOCYTES % (AUTO) 7.1 %; MEAN CORPUSCULAR HEMOGLOBIN 32.2 pg (27.0-31.0); MEAN CORPUSCULAR VOLUME 89.4 fL (81.0-99.0); MEAN PLATELET VOLUME 9.7 fL (7.9-10.8); MONOCYTES # (AUTO) 0.7 10^3/uL (0.0-1.0); MONOCYTES % (AUTO) 10.3 %; NEUTROPHILS # (AUTO) 5.6 10^3/uL (1.5-6.6); NEUTROPHILS % (AUTO) 81.6 %; PLT - PLATELET COUNT 235 10^3/uL (130-450); RED BLOOD COUNT 3.76 10^6/uL (4.20-5.40); RED CELL DISTRIBUTION WIDTH 12.3 % (12.0-15.0); WHITE BLOOD COUNT 6.9 x10^3/uL (4.8-10.8)
[2023-10-06 06:06] LABS: CALCIUM 8.8 mg/dL (8.5-10.3); CREATININE 0.4 mg/dL (0.6-1.3); POTASSIUM 3.5 mmol/L (3.5-4.5)
[2023-10-06] MEDS ORDERED: LOVASTATIN 20 MG PO SCH (09:00)
[2023-10-06] MEDS: ENOXAPARIN 40 MG/0.4 ML SYRINGE SUBQ SCH (09:07)
[2023-10-06] MEDS: amLODIPine 5 MG TABLET PO SCH (09:08)
[2023-10-06] MEDS: ASPIRIN 325 MG TABLET PO SCH (09:08)
[2023-10-06] MEDS: cefTRIAXone 1 GM in SODIUM CHLORIDE 0.9% MINIBAG 100 ML IV SCH (11:31)
--- NOTE | 2023-10-06 11:51 | PROVIDER PROGRESS NOTE ---
Subjective - Prog Note Date Prog Note Date: 10/06/23 Prog Note Time: 11:47 - Subjective Pt reports feeling: Improved Subjective: This is a 83-year-old female who was brought in with severe respiratory distress. And hypoxia. Enough that she needed to be on BiPAP in the emergency room. She was able to be stabilized and then transition to nasal cannula. By yesterday evening, she has been able to tolerate room air. She is still short of breath walking in the room. Getting up from bed to walk to the bathroom leaves her a little winded and she has to spend a few minutes catching her breath when she gets back in bed or chair. But she is 93% on room air. Her back hurts her. But that is not new. She is concerned about getting her proton pump inhibitor. She has quite a bit of reflux and gas. And wonders if she can get Aciphex. She also wonders about her potassium supplement. She denies fever, chills. Chest congestion. Phlegm. We talk about why she has been short of breath. She states that she is always a little short of breath because of mitral regurgitation. But her fell this year. Ended up with a concussion. Ended up having A-fib and needed a Watchman procedure. So it has been a series of medical visits and trips to [place]. They usually golfs 3 times a week. They walk on a daily basis. All of that has fallen by the [place] and she feels that that is why she went into congestive heart failure. No change in appetite. No unexpected weight changes. No cough, chest congestio n until the day before she got sick. is in the room. Yesterday when I met her, she indicated that she wanted to be DO NOT RESUSCITATE and that she had a healthcare directive as well as a DURABLE POWER OF GENERAL ASSIGNMENT REPORTER. Her has brought both of those in. I have spent some time doing advance care planning conversation. Please see that under separate dictation. Current Medications - Current Medications Current Medications: Active Medications Acetaminophen (Acetaminophen 325 Mg Tablet) 650 mg PO Q4HR PRN PRN Reason: Pain 1 to 4, or Fever Amlodipine Besylate (Amlodipine 5 Mg Tablet) 5 mg PO DAILY [facility] Last Admin: 10/06/23 09:08 Dose: 5 mg Aspirin (Aspirin 325 Mg Tablet) 325 mg PO DAILY [facility] Last Admin: 10/06/23 09:08 Dose: 325 mg Enoxaparin Sodium (Enoxaparin 40 Mg/0.4 Ml Syringe) 40 mg SUBQ DAILY [facility] Last Admin: 10/06/23 09:07 Dose: Not Given Furosemide (Furosemide 20 Mg Tablet) 20 mg PO DAILY [facility] Last Admin: 10/06/23 09:08 Dose: 20 mg Azithromycin 500 mg/ Sodium (Chloride) 250 mls @ 250 mls/hr IV DAILY [facility] Stop: 10/07/23 09:59 Ceftriaxone Sodium 1 gm/ (Sodium Chloride) 100 mls @ 200 mls/hr IV Q24H [facility] Stop: 10/09/23 11:29 Last Infusion: 10/06/23 11:34 Dose: 0 mls/hr Ibuprofen (Ibuprofen 400 Mg Tablet) 400 mg PO BID PRN PRN Reason: Moderate Pain (Level 4-6) Last Admin: 10/06/23 05:45 Dose: 400 mg Metoprolol Succinate (Metoprolol Succinate 25 Mg Tablet) 25 mg PO BID [facility] Last Admin: 10/06/23 09:08 Dose: 25 mg Ondansetron HCl (Ondansetron Odt 4 Mg Tablet) 4 mg TL Q6HR PRN PRN Reason: Nausea / Vomiting Ondansetron HCl (Ondansetron 4 Mg/2 Ml Vial) 4 mg IVP Q6HR PRN PRN Reason: Nausea / Vomiting Oxycodone HCl (Oxycodone 5 Mg Tablet) 5 mg PO Q4HR PRN PRN Reason: Pain 5 to 7 Potassium Chloride (8meq Capsule) 1 each PO QPM [facility] Last Admin: 10/05/23 21:29 Dose: Not Given Pravastatin Sodium (Pravastatin 10 Mg Tablet) 20 mg PO QPM [facility] Last Admin: 10/05/23 21:29 Dose: 20 mg Sodium Chloride (Sodium Chloride Flush 0.9% 10 Ml Syringe) 10 ml IVP PRN PRN PRN Reason: NEEDED PER PROVIDER ORDERS Sodium Chloride (Sodium Chloride Flush 0.9% 10 Ml Syringe) 10 ml IVP 0100,0900,1700 [facility] Last Admin: 10/06/23 09:07 Dose: Not Given Thyroid (Thyroid 60 Mg Tablet) 60 mg PO QDAC [facility] Last Admin: 10/06/23 05:46 Dose: 60 mg Furosemide [Lasix] 20 mg PO DAILY 03/31/19 Lovastatin 20 mg PO QPM 06/06/18 Metoprolol Succinate 25 mg PO BID 06/06/18 Rabeprazole Sodium [Aciphex] 20 mg PO QPM 06/06/18 Thyroid [[place] Thyroid] 60 mg PO DAILY 06/06/18 estradioL [Estradiol] 0.25 mg PO DAILY 06/06/18 ALPRAZolam [Alprazolam] 0.5 mg PO DAILY PRN 10/05/23 Aspirin [Vinicio] 325 mg PO DAILY 10/05/23 Ibuprofen 400 mg PO BID PRN 10/05/23 Multivitamin,Therapeutic [Thera-Tabs] 1 each PO QPM 10/05/23 Non Formulary 1 each PO DAILY 10/05/23 Polyethylene Glycol 400 [Dry Eye Relief] 1 drops EACHEYE QID PRN 10/05/23 Potassium Chloride 8 meq PO QPM 10/05/23 amLODIPine [Norvasc] 5 mg PO QPM 10/05/23 Objective - Vital Signs/Intake & Output Reviewed Vital Signs: Yes Vital Signs: Vital Signs x48h Temp Pulse Resp BP Pulse Ox 10/06/23 07:48 36.7 C 83 16 126/75 93 Intake & Output: Intake & Output 10/03/23 10/04/23 10/05/23 10/06/23 23:59 23:59 23:59 23:59 Intake Total 3443.333 2330 Balance 3443.333 2330 - Objective General Appearance: positive: No acute distress, Alert, Other (Thin elderly female who is able to get out of bed and walk to the bathroom was a little bit of an antalgic gait because of hip pain. When she goes to the bathroom and then gets back into her chair to talk to me she is a little short winded and a adelia le tachypneic but recovers within 2 to 3 minutes.) Eyes Bilateral: positive: PERRL ENT: positive: Pharynx nml Neck: positive: No JVD. negative: Stiff neck Respiratory: positive: No respiratory distress ( No use of accessory muscles), Rhonchi ( right mid lobe. Once. With faint wheezes.). negative: Wheezes, Rales Cardiovascular: positive: Regular rate & rhythm, Systolic murmur (gets louder to RUSB and none in axilla). negative: Diastolic murmur Abdomen: positive: Non-tender, No organomegaly, Nml bowel sounds, No distention Skin: positive: Warm, Dry Extremities: positive: Full ROM, No pedal edema Neurologic/Psychiatric: positive: Oriented x3, CN's nml (2-12) (mild deafness), Motor nml - Lab Results Fish Bones: 10/06/23 05:27 10/06/23 05:27 Other Labs: Lab Results x24hrs 10/06/23 10/06/23 10/06/23 Range/Units 05:27 05:27 05:27 WBC (4.8-10.8) x10^3/uL RBC (4.20-5.40) 10^6/uL Hgb (12.0-16.0) g/dL Hct (37.0-47.0) % MCV (81.0-99.0) fL MCH (27.0-31.0) pg MCHC (32.0-36.0) g/dL RDW (12.0-15.0) % Plt Count (130-450) 10^3/uL MPV (7.9-10.8) fL Neut # (Auto) (1.5-6.6) 10^3/uL Lymph # (Auto) (1.5-3.5) 10^3/uL [place] # (Auto) (0.0-1.0) 10^3/uL Eos # (Auto) (0.0-0.7) 10^3/uL Baso # (Auto) (0.0-0.1) 10^3/uL Absolute Nucleated RBC x10^3/uL Nucleated RBC % /100WBC Sodium 128 L (135-145) mmol/L Potassium 3.5 (3.5-4.5) mmol/L Chloride 98 L (101-111) mmol/L Carbon Dioxide 23 (21-32) mmol/L Anion Gap 7.0 (6-13) BUN 6 (6-20) mg/dL Creatinine 0.4 L (0.6-1.3) mg/dL Estimated GFR (MDRD) 153 (>89) Glucose 152 H (74-104) mg/dL Calcium 8.8 (8.5-10.3) mg/dL B-Natriuretic Peptide 855 H (5-100) pg/mL Procalcitonin Immunoas < 0.05 (<0.5) ng/mL 10/06/23 Range/Units 05:27 WBC 6.9 (4.8-10.8) x10^3/uL RBC 3.76 L (4.20-5.40) 10^6/uL Hgb 12.1 (12.0-16.0) g/dL Hct 33.6 L (37.0-47.0) % MCV 89.4 (81.0-99.0) fL MCH 32.2 H (27.0-31.0) pg MCHC 36.0 (32.0-36.0) g/dL RDW 12.3 (12.0-15.0) % Plt Count 235 (130-450) 10^3/uL MPV 9.7 (7.9-10.8) fL Neut # (Auto) 5.6 (1.5-6.6) 10^3/uL Lymph # (Auto) 0.5 L (1.5-3.5) 10^3/uL [place] # (Auto) 0.7 (0.0-1.0) 10^3/uL Eos # (Auto) 0.0 (0.0-0.7) 10^3/uL Baso # (Auto) 0.0 (0.0-0.1) 10^3/uL Absolute Nucleated RBC 0.00 x10^3/uL Nucleated RBC % 0.0 /100WBC Sodium (135-145) mmol/L Potassium (3.5-4.5) mmol/L Chloride (101-111) mmol/L Carbon Dioxide (21-32) mmol/L Anion Gap (6-13) BUN (6-20) mg/dL Creatinine (0.6-1.3) mg/dL Estimated GFR (MDRD) (>89) Glucose (74-104) mg/dL Calcium (8.5-10.3) mg/dL B-Natriuretic Peptide (5-100) pg/mL Procalcitonin Immunoas (<0.5) ng/mL ABX Reporting Has patient been on IV antibiotics over the past 48 hours?: Yes Assessment/Plan - Problem List (1) Acute respiratory failure with hypoxia Impression: Due to pneumonia. And subtle suggestion of acute congestive heart failure on chest x-ray.This patient is not at risk for PE. There is no pleural effusion, a nd there is no atrial fibrillation with RVR present as she did in the past. between yesterday and today the hypoxia has resolved with her ususal lasix dose and abx. her exam has a systolic murmur and she has known mitral regurg. Plan: Finish camacho for chf today w echo. give one more day of iv abx and switch to oral for tomorrow continue to Treat as pneumonia probable discharge tomorrow (2) Pneumonia Conclusion/Plan: Unfortunately no blood cultures were done by ER Md before she received antibiotics. Plan is for Rocephin 1 g IV push daily for 5 days. Azithromycin 500 mg IV push daily for 3 days. white cell count went from 8.8 on admission, down to 6.9 today. No fever. Improved oxygenation. So I do believe this pneumonia is mild. She will receive IV antibiotics today. And then tomorrow I will switch her over to oral to complete 5 days total. Qualifiers: Pneumonia type: due to unspecified organism Laterality: right Lung location: middle lobe of lung Qualified Code(s): J18.9 - Pneumonia, unspecified organism (3) History of CHF (congestive heart failure) due to afib w RVR. Conclusion/Plan: Suggestion of vascular congestion on Chest x-ray. But this lady has been compliant with her medications, no change in her diet indicating she may have a salt load, without any recent travel. She has no RVR by EMS evaluation or ER evaluation. I am puzzled by why she would go into congestive heart failure. She has received Lasix in the ER and that seems to work well. Medications at home are Lasix, metoprolol and Norvasc. I resumed the Lasix 20 mg daily. I resumed the metoprolol 100 po bid. her electrical estimator was in clinic today and his office nurse was able to send me his last visit with the patient. She saw him on November 27, 2022 for paroxysmal A-fib, status post A-fib ablation 2018 and a Watchman device in 2019. She has mitral regurgitation. At that point in time she was having stable baseline dyspnea on exertion. She had a 1 out of 6 systolic ejection murmur. The echocardiogram done November 27, 2022 showed normal left ventricular ejection fraction of 68% without any wall motion abnormalities. She had moderate 2+ mitral regurgitation. The left atrial cavity was normal in size. She had a sclerotic aortic valve with peak velocity was 1.88 m/s and the mean valve gradient was 8 mmHg. The aortic valve area was 1.9 cm. Mild aortic regurgitation. The right heart was normal tricuspid valve had minimal regurgitation. Pulmonary artery systolic pressure was mildly elevated at 4141.7 mmHg. There is no PFO or ASD or VSD. I am going to repeat her echo today. Explained to her why. If she has congestive heart failure is a new diagnosis and I would like to reassess her left ventricle and mitral regurgitation. (4) History of atrial fibrillation Conclusion/Plan: Status post ablation, status post Watchman procedure to avoid using Eliquis. Resumed her metoprolol and her rate is controlled. (5) Anxiety Conclusion/Plan: Will resume her Xanax 0.25 mg p.o. daily as needed (6) Hyponatremia Conclusion/Plan: In looking at the EMR she has been chronically hyponatremic for years. Not on an SSRI. No history of orthostatic hypotension or hyperpigmentation. She is on diuretics. Plan: I will attribute this to her diuretics. I could order a serum and urine osmolality but these are send out labs will come back for a week. (7) Do not resuscitate Conclusion/Plan: Advance care planning conversation held. Please read conversation under separate dictation.
--- NOTE | 2023-10-06 12:22 | ADVANCE CARE PLANNING NOTE ---
Advance Care Planning - Planning Encounter Date: 10/06/23 Time: 12:21 Purpose: codify code status with POLST Parties in Attendance: , hospitalist, and patient Decisional Capacity of the Patient: Alert and oriented to person, place, time and situation - Diagnosis for Encounter (4) History of atrial fibrillation Summary: she had an ablation in 2018. And then subsequent Watchman procedure. She is on a beta-barbie. No longer anticoagulated. - Encounter Subjective/Patient's Story: born in [facility]. 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 She has been since 1992. Has 2 stepchildren with her . They live in [place]. She started smoking at the age of 17, quit smoking age 53. Smokes maybe a pack a week. She drinks 3 cocktails a night. It is a three-quarter jigger with each drink. No history of recreational substance abuse. She and her used to go to [place] 6 months out of the year and live near [place] in their fifth wheel. 2022 was the last year they did it and they do not plan on going back because of their age and difficulty [facility] now. It has been a few weeks of stress. Her fell on his face as he was transporting suitcases and one of their trips. He ended up having to go to the emergency room and had a severe concussion. While they are evaluating him they also found him to have a kidney stone and he had lithotripsy done a few weeks later. They also found him to have a "cyst in the brain" with a follow-up MRI needed. Nothing needs to be done about it. And that he ended up having several episodes of symptomatic atrial fibrillation and underwent a Watchman procedure. She and her played 18 holes of golf sometimes 3 times a week. They walk on a daily basis. The because of the stress all of this and the needed doctor visits, they have not done anything since August. She can feel it in her body that she is slow down. She has problems with forgetting words or why she walked into her room but does not feel like she has any dementia. She can still feed herself, dress herself, and does not need any durable medical equipment. Her was once before he her. They never had children together. With his first marriage he is estranged from his children because the children ended up setting with her mom. She says that "he is rosalee if he gets a phone call on his birthday". Still her main support system is her . And her sister Lynette. They give me copies of their healthcare directive, and DURABLE POWER OF INTEGRATED PROGRAM TEACHER for her. She would like to be DO NOT RESUSCITATE. She is amenable to filling out a POLST form today. As for plans for the future, they are not exceedingly well off but they have no debt. And they get enough monthly stipend is between 401(k)'s and Medicare that they have a small metastatic that is actually building. Not diminishing. So they plan on staying in their own home. And they want to hire private duty caregivers if they need more help. They have read on their house so that the bathroom is handicapped accessible. The house is handicap accessible. Objective/Medical Story: 3-year-old who has a history of paroxysmal atrial fibrillation. This resulted in 3 hospitalizations in [place]. One of them with pneumonia. When she was hospitalized at [facility] for her last A-fib, she was in the hospital for 11 days and underwent cardioversion. Subsequent to that she underwent a Watchman procedure because she could not tolerate the DOAC. And now she is rate controlled and followed by cardiology at [facility], Dr. Mcmillan. She describes a deterioration in her overall physical status due to lack of exercise in the last couple of months. But no other changes. No chest pain, no CHF edema. No palpitations. Suddenly awoken at 2 AM with severe shortness of breath and wheezing. She had to come to the hospital we have evaluated her for GA, CHF, pneumonia. Chest x-ray shows changes of pneumonia and she is being treated for that. We are also giving her her usual Lasix. She did receive IV Lasix in the ER. We are not getting a subsequent echocardiogram to follow-up on the echo from November 2022. She will receive 3 days of IV antibiotics and then changed to oral and go home. Goals of Care: To complete workup for possible congestive heart failure To return to her baseline status where she can golf 3 times a week. When the time comes, to remain in her home with caregivers. She does not want to live in assisted living facility or fpc facility Plan: POLST form filled out. She is a DO NOT RESUSCITATE. Original given to the patient and a copy For our EMR I have read her healthcare directive and DURABLE POWER OF INTEGRATED PROGRAM TEACHER. I have a copy does and given them to HIM for scanning into the EMR Code Status: Do Not Attempt Resuscitation Time spent on advance care plannin minutes
[2023-10-06] MEDS: AZITHROMYCIN INJ 500 MG in SODIUM CHLORIDE 0.9% 250 ML IV SCH (14:45)
[2023-10-06] MEDS: PANTOPRAZOLE 40 MG TABLET PO STA (19:07)
[2023-10-06] MEDS: ALPRAZolam 0.25 MG TABLET PO PRN (20:01)
[2023-10-07 05:52] LABS: HGB - HEMOGLOBIN 11.8 g/dL (12.0-16.0); LYMPHOCYTES % (AUTO) 15.7 %; MEAN CORPUSCULAR HEMOGLOBIN 31.8 pg (27.0-31.0); MEAN CORPUSCULAR HGB CONC 34.7 g/dL (32.0-36.0); MEAN CORPUSCULAR VOLUME 91.6 fL (81.0-99.0); MEAN PLATELET VOLUME 9.8 fL (7.9-10.8); MONOCYTES % (AUTO) 30.6 %; NEUTROPHILS # (AUTO) 3.5 10^3/uL (1.5-6.6); NEUTROPHILS % (AUTO) 53.2 %; PLT - PLATELET COUNT 251 10^3/uL (130-450); RED BLOOD COUNT 3.71 10^6/uL (4.20-5.40); RED CELL DISTRIBUTION WIDTH 12.9 % (12.0-15.0); WHITE BLOOD COUNT 6.6 x10^3/uL (4.8-10.8)
[2023-10-07 06:06] LABS: CALCIUM 8.9 mg/dL (8.5-10.3); CREATININE 0.5 mg/dL (0.6-1.3); POTASSIUM 3.5 mmol/L (3.5-4.5)
[2023-10-07 06:22] LABS: PLATELET ESTIMATE, MANUAL NORMAL (130-450,000) (NORMAL); RBC MORPHOLOGY (MULTIPLE) NORMAL APPEARANCE (NORMAL)
[2023-10-07] MEDS: PANTOPRAZOLE 40 MG TABLET PO SCH (06:27)
[2023-10-07 09:14] VITALS: BP 134/75; O2SAT 93
--- NOTE | 2023-10-07 11:24 | Discharge Plan ---
Discharge Plan Problem Reviewed?: Yes Disposition: Home, Self Care Condition: Stable Prescriptions: levoFLOXacin [Levaquin] 500 mg PO QD 2 Days #4 tablet Diet: Cardiac Activity Restrictions: Activity as Tolerated Shower Restrictions: No Driving Restrictions: No Instruction Topics: Furosemide tablets, Heart Failure Meds Control, Heart Failure, Heart Failure Warning Signs, Heart Failure Tracking Weight, Heart Failure Diet Changes, Heart Failure Helpful Meds, ED CHF Left Side Health Concerns: You have a past medical history of atrial fibrillation that required rate control and anticoagulation in the past. However, you stopped the anticoagulation because of bleeding in the past. And you are now with the watch man's procedure and taking rate control medication. You presented to the ER with chest congestion for a day followed by sudden severe shortness of breath that woke you up in the middle of the night accompanied by wheezing. At that time, your heart rate was normal. On chest x-ray, we found you to have a very small right lung pneumonia. Your oxygen was low. But we were also worried about a diagnosis of congestive heart failure since some of your blood vessels appeared engorged on chest x-ray. The entire time you were with us, your heart rate was normal and did not contribute to shortness of breath. You were treated for pneumonia and gradually recovered to feel normal again. We did an echocardiogram before you left, which is an ultrasound of the heart, and we found you to have new, mild aortic stenosis. But you have a previous history of mitral regurgitation. Also have elevated pulmonary artery pressures giving you early pulmonary hypertension. These valve problems may be contributing to shortness of breath. I think that most of this can be handled with medication alone. You already have a administrative job titles at [facility] named Dr. Mcmillan. Plan of Treatment: 1. Please see your primary care provider, Dr. Wolf, in the next 1 to 2 weeks to bring her up-to-date was going on with you. 2. You are not due to see Dr. Mcmillan until November. Please see him at your earliest convenience. I would recommend in the next few weeks. He should be brought up-to-date with your condition as well. 3. You have requested your medical records. I have given you a medical records release form for you to fill out. We will send that down to medical records and they will send you your records so that you can use them to also show Dr. Mcmillan and Dr. Wolf what went on with you. 4. To finish your treatment for pneumonia, I am asking that you take Levaquin 500 mg, once a day for the next 2 days. Care Goals: Your goal is to remain at home, and stay as healthy for as long as possible. You and your did share with me your advance care planning. You have an advance care directive as well as a DURABLE POWER OF ELECTRICAL TEST ENGINEER already set. During your stay you let me know that you you would like a CODE STATUS to be DO NOT RESUSCITATE and we filled out a POLST form. That original will go home with you. A copy will be kept here for our medical records Assessment: patient is alert, oriented to person, place, time and situation No Smoking: If you smoke, Please STOP! Call for help. Follow-up with: Matilde Wolf MD [Primary Care Provider] -
--- NOTE | 2023-10-08 07:10 | DISCHARGE SUMMARY ---
Discharge Summary Admit Date: 10/05/23 Discharge Date: 10/08/23 Discharging Provider: Shaista Payne MD Primary Care Provider: Matilde Wolf Code Status: Do Not Attempt Resuscitation Condition at Discharge: Stable Discharge Disposition: 01 Home, Self Care - DIAGNOSES Discharge Diagnoses with Status of Each Condition: 1. Sepsis with acute hypoxic respiratory failure 2. Pneumonia 3. History of A-fib 4. Anxiety 5. Hyponatremia 6. DO NOT RESUSCITATE status 7. New diagnosis of aortic stenosis 8. Chronic history of mitral regurgitation 9. new diagnosis of acute heart failure with preserved ejection fraction - HPI History of Present Illness: 83-year-old white female who is followed by primary care provider Matilde Wolf and Cardiology with Dr. Nikunj Baez ([phone]) and has a history of atrial fibrillation causing congestive heart failure in 2011, hematuria caused by prolonged INR with Eliquis so she is s/p Watchman, and now presents with shortness of breath. She has no previous history of COPD but was admitted to a hospital in [place] years ago for pneumonia, CHF and afib as stated previously. In 2019 she had another episode of afib and pna and was hospitalized at [place]. The afib was so severe she had to be cardioverted electrically and stayed 11 days. After she came home from that she had the Watchman, and ablation. Starting yesterday, she felt like she was "getting congested". But no rhinorrhea, sore throat, cough, chest pain, or fever. Appetite was a little down. Then at 2 am she awoke to conor wheezing. She has not done that before. She stated that this is not the shortness of breath she has had with her previous 2 episodes for A-fib and CHF. With those episodes the predominant symptom was the palpitations that was so fast. With this episode she just felt like she was suffocating and could not lay down. Every time she tried to lay down the shortness of breath was worse. She was gulping air and then she felt like her belly was full of air and "wheezing in and of itself". She tried to pass gas to make yourself feel better and she did with regards to her abdomen but she could not lay down because of her chest. She tried mucinex and that didn't work. She denied palpitations, chest pain. She became so short of breath she called an ambulance and she was brought to the emergency room. She was acutely hypoxic with a respiratory rate of 30 on the scene. Pulse was not fast per report. Her O2 sats were 87% on room air. She had already received DuoNeb and Solu-Medrol with EMS. In the ER, she was placed on BiPAP for the hypoxia and struggle to breath, given more treatment, and stabilized. She was not tachy and pulse was 59 with EMS. Able to come off BiPAP in the ER and now she is on nasal cannula oxygen to maintain O2 sats. Her respiratory rate has gone from 30>>20. Pulse has been stable since admission. She was 60 with her acute respiratory episode and she is 78 now. Examination showed her to have right mid lung sound abnormalities. 88% on room air. 2 liters NC would bump her up to 93%-96%. Labs had a sodium of 126. Magnesium was low at 1.6. BNP high at 276. White cell count was 8.8 and hemog lobin 13.9. There is no left shift. INR is 1.1. Blood gas on BiPAP had a pH of 7.42, pCO2 35, pO2 84, bicarb 22. Base excess -1.4. She is now off the BiPAP. Chest x-ray has mild pulmonary Vascular congestion and a suggestion of a small bibasilar infiltrate versus atelectasis. The ER provider called me to discuss the case. This appears to be a straightforward community-acquired pneumonia with hypoxia, respiratory distress, abnormal chest x-ray. And possible suggestion acute CHF on chest x-ray. No antecedent history of uncontrolled heart rate. And EMS found her heart rate to be 59. After reviewing the case, examining the patient, I am placing her in inpatient status. She tells me that she has already improved. She does not have much appetite and ate the turkey and her sandwich but not the rest of the sandwich. She still does not want to lay down flat because she is afraid of getting short of breath. She is able to breathe more easily. Speak normally. And not feel like she is suffocating. She states that she has panic attacks and get quite anxious. But this is the worst she is ever felt. - CONSULTS | PROCEDURES Procedures: Chest x-ray has pulmonary vascular congestion and a suggestion of small bibasilar infiltrates versus atelectasis Echocardiogram with left ventricular systolic function normal. Ejection fraction 55 to 60%. Grade 1 diastolic dysfunction. Severe right ventricular enlargement, right ventricular systolic function mildly impaired. Mild aortic stenosis. Moderate mitral regurg. Moderately abnormal right heart pressures. RVSP at rest is 51 mmHg. - HOSPITAL COURSE Hospital Course: (1) Acute respiratory failure with hypoxia Impression: Due to pneumonia. And subtle suggestion of acute congestive heart failure on est x-ray.This patient is not at risk for PE. There is no pleural effusion, and there is no atrial fibrillation with RVR present as she did in the past. between yesterday and today the hypoxia has resolved with her ususal lasix dose and abx. her exam has a systolic murmur and she has known mitral regurg. Completed treatment for pneumonia and we have asked that she be followed up in the outpatient setting for possible new right-sided heart failure according to the data from the echo. (2) Pneumonia Conclusion/Plan: Unfortunately no blood cultures were done by ER Md before she received antibiotics. She was given IV antibiotics for 3 days. Then switched over to oral antibiotics to complete 5 days total. Qualifiers: Pneumonia type: due to unspecified organism Laterality: right Lung location: middle lobe of lung Qualified Code(s): J18.9 - Pneumonia, unspecified organism (3) History of CHF (congestive heart failure) due to afib w RVR. Conclusion/Plan: Suggestion of vascular congestion on Chest x-ray. But this lady has been compliant with her medications, no change in her diet indicating she may have a salt load, without any recent travel. She has no RVR by EMS evaluation or ER e valuation. I am puzzled by why she would go into congestive heart failure. She has received Lasix in the ER and that seems to work well. her editor publications was in clinic today and his office nurse was able to send me his last visit with the patient. She saw him on November 27, 2022 for paroxysmal A-fib, status post A-fib ablation 2018 and a Watchman device in 2019. She has mitral regurgitation. At that point in time she was having stable baseline dyspnea on exertion. She had a 1 out of 6 systolic ejection murmur. The echocardiogram done November 27, 2022 showed normal left ventricular ejection fraction of 68% without any wall motion abnormalities. She had moderate 2+ mitral regurgitation. The left atrial cavity was normal in size. She had a sclerotic aortic valve with peak velocity was 1.88 m/s and the mean valve gradient was 8 mmHg. The aortic valve area was 1.9 cm. Mild aortic regurgitation. The right heart was normal tricuspid valve had minimal regurgitation. Pulmonary artery systolic pressure was mildly elevated at 4141.7 mmHg. There is no PFO or ASD or VSD. Echocardiogram shows development of mild aortic stenosis. But pulmonary pressures are getting worse and she may have right heart failure as the reason for her CHF. She will need cardiology follow-up. (4) History of atrial fibrillation Conclusion/Plan: Status post ablation, status post Watchman procedure to avoid using Eliquis. we Resumed her metoprolol and her rate is controlled. (5) Anxiety Conclusion/Plan: Resumed her Xanax 0.25 mg p.o. daily as needed (6) Hyponatremia Conclusion/Plan: In looking at the EMR she has been chronically hyponatremic for years. Not on an SSRI. No history of orthostatic hypotension or hyperpigmentation. She is on diuretics. (7) Do not resuscitate Conclusion/Plan: Advance care planning conversation held. Please read conversation under separate dictation. discharge she is asked to follow-up with her primary care provider, and her editor publications. - ALLERGIES Allergies/Adverse Reactions: Allergies Allergy/AdvReac Type Severity Reaction Status Date / Time acetaminophen [From Vicodin] Allergy Unknown Verified 10/05/23 06:48 digoxin Allergy Unknown Verified 10/05/23 06:48 hydrocodone [From Vicodin] Allergy Unknown Verified 10/05/23 06:48 omeprazole Allergy Unknown Verified 10/05/23 06:48 Penicillins Allergy Unknown Verified 10/05/23 06:48 Sulfa (Sulfonamide Allergy Unknown Verified 10/05/23 06:48 Antibiotics) sulfamethoxazole Allergy Unknown Verified 10/05/23 06:48 [From Septra] trimethoprim [From Septra] Allergy Unknown Verified 10/05/23 06:48 - MEDICATIONS Home Medications: Ambulatory Orders Medication Instructions Recorded Confirmed Furosemide [Lasix] 20 mg PO DAILY 06/06/18 10/05/23 Lovastatin 20 mg PO QPM 06/06/18 10/05/23 Metoprolol Succinate 25 mg PO BID 06/06/18 10/05/23 Rabeprazole Sodium [Aciphex] 20 mg PO QPM 06/06/18 10/05/23 Thyroid [[place] Thyroid] 60 mg PO DAILY 06/06/18 10/05/23 estradioL [Estradiol] 0.25 mg PO DAILY 06/06/18 10/05/23 ALPRAZolam [Alprazolam] 0.5 mg PO DAILY PRN 10/05/23 10/05/23 Aspirin [Vinicio] 325 mg PO DAILY 10/05/23 10/05/23 Ibuprofen 400 mg PO BID PRN 10/05/23 10/05/23 Multivitamin,Therapeutic 1 each PO QPM 10/05/23 10/05/23 [Thera-Tabs] Non Formulary 1 each PO DAILY 10/05/23 10/05/23 Polyethylene Glycol 400 [Dry Eye 1 drops EACHEYE QID PRN 10/05/23 10/05/23 Relief] Potassium Chloride 8 meq PO QPM 10/05/23 10/05/23 amLODIPine [Norvasc] 5 mg PO QPM 10/05/23 10/05/23 levoFLOXacin [Levaquin] 500 mg PO QD 2 Days #4 tablet 10/07/23 - PHYSICAL EXAM AT DISCHARGE General Appearance: positive: No acute distress, Alert, Other ( Thin elderly female 5 feet 7 inches tall, 80 kg.) Eyes Bilateral: positive: PERRL, EOMI ENT: positive: Pharynx nml Neck: positive: No JVD. negative: Stiff neck Respiratory: positive: No respiratory distress. negative: Wheezes, Rales, Rhonchi Cardiovascular: positive: Regular rate & rhythm, Systolic murmur Abdomen: positive: Non-tender, No organomegaly, Nml bowel sounds, No distention Skin: positive: Warm, Dry Extremities: positive: Full ROM, No pedal edema Neurologic/Psychiatric: positive: Oriented x3, CN's nml (2-12), Motor nml - LABS Result Diagrams: 10/07/23 05:21 10/07/23 05:21 - TIME SPENT Time Spent in Discharge (Minutes): 35 ( This document was made in part using voice recognition software. While efforts are made to proofread this document, sound alike and grammatical errors may occur.)
--- NOTE | 2023-10-21 23:11 | ED Physician Documentation ---
ED Addendum - Addendum Addendum: 10/21/23 23:08 the patient was breathing stable without undue work of breathing at time of shift change. Awaiting beds on floor. Subsequently did have beds, so I talked with hospitalist. Patient will be admitted in stable condition. Was getting gentle IV NS. Dispotion: admitted to hospitalist service in stable condition. Diagnoses: hyponatremia dyspnea trouble breathingd 10/21/23 23:10
== END 2023-10-07 12:03 | disposition home or self-care (01) | DRG 871 ==
LOC: EDUNIT# → ED 06:38 → MS2 10:17
PROVIDERS: ADMIT Specialist; ATTEND Specialist
DX: A41.9 Sepsis, unspecified organism (principal); R06.03 Acute respiratory distress; I50.31 Acute diastolic (congestive) heart failure; R09.02 Hypoxemia; R94.31 Abnormal electrocardiogram [ECG] [EKG]; Z20.818 Contact with and (suspected) exposure to other bacterial communicable diseases; Z20.822 Contact with and (suspected) exposure to COVID-19; Z20.828 Contact with and (suspected) exposure to other viral communicable diseases; J18.9 Pneumonia, unspecified organism; J96.01 Acute respiratory failure with hypoxia; E87.1 Hypo-osmolality and hyponatremia; F41.9 Anxiety disorder, unspecified; I08.0 Rheumatic disorders of both mitral and aortic valves; K21.9 Gastro-esophageal reflux disease without esophagitis; M54.9 Dorsalgia, unspecified; G89.21 Chronic pain due to trauma; V89.2XXS Person injured in unspecified motor-vehicle accident, traffic, sequela; T14.8XXS Other injury of unspecified body region, sequela; Z66 Do not resuscitate; Z79.82 Long term (current) use of aspirin; Z79.890 Hormone replacement therapy; Z79.899 Other long term (current) drug therapy; Z80.0 Family history of malignant neoplasm of digestive organs; Z80.8 Family history of malignant neoplasm of other organs or systems; Z82.49 Family history of ischemic heart disease and other diseases of the circulatory system; Z86.79 Personal history of other diseases of the circulatory system; Z87.891 Personal history of nicotine dependence; Z88.0 Allergy status to penicillin; Z88.2 Allergy status to sulfonamides; Z88.5 Allergy status to narcotic agent; Z88.6 Allergy status to analgesic agent; Z88.8 Allergy status to other drugs, medicaments and biological substances; Z95.818 Presence of other cardiac implants and grafts
CPT/HCPCS: 36415; 36600; 71045; 80048; 80053; 82803; 83690; 83735; 83880; 84145; 84484; 85025; 85610; 87633; 93005; 93307; 94640; 94660; 96374; 96375; 99284; 99285; A9270

== ENCOUNTER 2023-10-30 11:17 | Outpatient (CLI) | payer MEDICARE ==
[2023-10-30] MEDS ORDERED: iohexoL-300 100 ML VIAL ONE (11:20)
--- NOTE | 2023-10-30 14:38 | CT Report ---
PROCEDURE: Angio Chest INDICATIONS: Ventricular dilatation CONTRAST: 80ml omni 300 TECHNIQUE: After the administration of intravenous contrast, 2 mm axial images were acquired from the pulmonary apices to the posterior costophrenic angles during the arterial phase. In addition, 1 mm lung kernel and 5 mm soft tissue kernel reconstructions were performed. 3-dimensional coronal oblique maximum int ensity projection (MIP) reformats, 8 mm axial MIP, and 5 mm coronal and sagittal MPR reformats were t hen performed through the thorax. For radiation dose reduction, the following was used: automated exp osure control, adjustment of mA and/or kV according to patient size. COMPARISON: CXR 10/05/2023. CT IVP 06/10/2018. FINDINGS: Image quality: Excellent. Large vessels: No filling defects within the opacified pulmonary arteries, accounting for motion and contrast timing. No evidence of acute aortic syndrome or aortic aneurysm. Lungs and pleura: No consolidation. No pleural effusions. No pneumothorax. No suspicious pulmonary no dules which require follow up. Mild dependent atelectasis. Mediastinum: Heart size is felt to be within normal limits and is unchanged. Left atrial appendage oc cluder device. No pericardial effusion. No large vessel abnormality. No central pulmonary embolism. M ild calcified plaque at the aortic arch. No mediastinal adenopathy by size criteria. Chest wall and lower neck: Thyroid is unremarkable. No axillary or supraclavicular adenopathy by size . Bones: No aggressive osseous abnormality. Upper Abdomen: Unremarkable. IMPRESSION: 1. Heart size is felt to be within normal limits. Left atrial appendage occluder device. 2. No pericardial effusion. 3. No pulmonary embolism. Reviewed by: Ross Muhammad MD on 10/30/2023 2:37 PM PDT Approved by: Ross Muhammad MD on 10/30/2023 2:37 PM PDT Station ID: [id number]
[2023-10-30] MEDS: iohexoL-300 100 ML VIAL IVP ONE (15:51)
== END 2023-10-30 11:18 | disposition home or self-care (01) ==
LOC: DI 11:17
PROVIDERS: ATTEND Internal Medicine
DX: J18.9 Pneumonia, unspecified organism (principal); I51.7 Cardiomegaly
CPT/HCPCS: 71275; Q9967